=== PATIENT | female | born 1970 | race Caucasian/White ===

== ENCOUNTER 2018-03-09 00:02 | Emergency (ER) | payer OTHER ==
[2018-03-09 00:32] LABS: ADD MAN DIFF? NO
[2018-03-09] MEDS: ALPRAZOLAM 0.25 MG TAB PO (00:38)
[2018-03-09] MEDS: MECLIZINE 12.5 MG TAB PO (00:38)
[2018-03-09 00:39] LABS: BASOPHIL # 0.1 10^3/ul (0.0-0.1); BASOPHILS % 0.6 % (0.0-2.0); EOSINOPHILS # 0.1 10^3/ul (0.0-0.5); EOSINOPHILS % 1.6 % (0.0-7.0); HEMATOCRIT 31.5 % (37.0-47.0); HEMOGLOBIN 9.7 g/dl (12.0-16.0); LYMPHOCYTES # 3.5 10^3/ul (0.8-2.9); LYMPHOCYTES % 41.3 % (15.0-51.0); MEAN CORPUSCULAR HEMOGLOBIN 24.6 pg (29.0-33.0); MEAN CORPUSCULAR HGB CONC 30.8 g/dl (32.0-37.0); MEAN CORPUSCULAR VOLUME 79.7 fl (82.0-101.0); MEAN PLATELET VOLUME 10.4 fl (7.4-10.4); MONOCYTE # 0.5 10^3/ul (0.3-0.9); MONOCYTES % 5.8 % (0.0-11.0); NEUTROPHIL # 4.3 10^3/ul (1.6-7.5); NEUTROPHILS % 50.2 % (39.0-77.0); PLATELET COUNT 481 10^3/UL (140-415); RED BLOOD COUNT 3.95 10^6/ul (4.20-5.40); RED CELL DISTRIBUTION WIDTH 16.9 % (11.5-14.5)
[2018-03-09 00:39] LABS: WHITE BLOOD COUNT 8.5 10^3/ul (4.8-10.8)
[2018-03-09 00:47] LABS: URINE PH (Dip) POC 5.5 (5.0-8.5)
[2018-03-09 00:47] LABS: URINE BLOOD (Dip) POC Negative (NEGATIVE); URINE GLUCOSE (Dip) POC Negative (NEGATIVE); URINE KETONES (Dip) POC Negative (NEGATIVE); URINE LEUKOCYTE EST (Dip) POC Negative (NEGATIVE); URINE NITRITE (Dip) POC Negative (NEGATIVE); URINE TOTAL PROTEIN POC Negative (NEGATIVE)
[2018-03-09 00:55] LABS: ANION GAP 15 (8-16); BLOOD UREA NITROGEN 10 mg/dl (7-20); CALCIUM 10.4 mg/dl (8.4-10.2); CARBON DIOXIDE 21 mmol/L (21-31); CHLORIDE 108 mmol/L (97-110); CREATININE 0.57 mg/dl (0.44-1.00); GLUCOSE 177 mg/dl (70-220); POTASSIUM 4.1 mmol/L (3.5-5.1); SODIUM 140 mmol/L (135-144)
[2018-03-09 01:01] LABS: PROTIME 11.1 Sec (11.9-14.9); PT RATIO 0.9
[2018-03-09 01:03] LABS: PARTIAL THROMBOPLASTIN TIME 32.2 Sec (25.0-35.0)
== END 2018-03-09 05:15 | disposition home or self-care (01) ==
LOC: E/R 00:02
DX: G93.5 Compression of brain (principal); E11.9 Type 2 diabetes mellitus without complications; R06.02 Shortness of breath; Z79.84 Long term (current) use of oral hypoglycemic drugs; Z79.82 Long term (current) use of aspirin
CPT/HCPCS: 36415; 70450; 70551; 80048; 81003; 81025; 85025; 85610; 85730; 93005; 99284-25